=== PATIENT | male | born 1945 | race Caucasian/White ===

== ENCOUNTER 2016-11-14 05:55 | Day surgery (SDC) | payer MEDICARE, BC ==
[~2016-11-14] VITALS: Ht 170.2 cm; Wt 59.1 kg
[~2016-11-14 05:55] MED LIST: AMIT10 PO; AZIT250T43 PO; FINA5TAB77 PO; FLEX10TA PO; HYDR-2951 PO; LANS30 PO; LEVO125T3 PO; LUMI0.01 EACH EYE; PROC10TA4 PO; TAMS0.4C67 PO; TUMS500C PO; ZOFR4TAB3 SL
[2016-11-14 06:34] VITALS: BP 104/73; PULSE 74; RESP 18; TEMP 97.6; O2SAT 99
[2016-11-14] MEDS ORDERED: AMIT10TA6 PO (06:37)
[2016-11-14] MEDS ORDERED: LUMI0.01 EACH EYE (06:37)
[2016-11-14] MEDS ORDERED: LEVO88TA2 PO (06:37)
[2016-11-14] MEDS ORDERED: PROS5TAB PO (06:37)
[2016-11-14] MEDS ORDERED: TAMS5CAP PO (06:37)
[2016-11-14] MEDS ORDERED: ceFAZolin 2 GM PREMIX 50 ML - implanted port removal IV SCH (06:45)
[2016-11-14] MEDS ORDERED: SODIUM CHLORIDE 0.9% 1000 ML IV SCH (06:45)
[2016-11-14 07:11] LABS: AUTOMATED NEUTROPHIL # 3.4 TH/MM3 (1.8-7.7); BASOPHIL % 0.8 % (0.0-2.0); EOSINOPHIL # 0.3 TH/MM3 (0-0.4); EOSINOPHIL % 6.4 % (0.0-4.0); HEMATOCRIT 42.6 % (39.0-51.0); HEMO FLAGS DIFF FINAL; LYMPHOCYTE # 0.7 TH/MM3 (1.0-4.8); MEAN CELL VOLUME 91.9 FL (80.0-100.0); MEAN CORPUSCULAR HEMOGLOBIN 31.4 PG (27.0-34.0); MEAN CORPUSCULAR HGB CONC 34.2 % (32.0-36.0); NEUT % 67.8 % (16.0-70.0); PLATELET COUNT 224 TH/MM3 (150-450); RED BLOOD COUNT 4.64 MIL/MM3 (4.50-5.90); RED CELL DISTRIBUTION WIDTH 14.5 % (11.6-17.2)
[2016-11-14 07:30] LABS: PROTHROMBIN TIME - PATIENT 10.5 SEC (9.8-11.6)
[2016-11-14] MEDS ORDERED: fentaNYL CITRATE 250 MCG/5 ML AMP ONE (07:45)
[2016-11-14] MEDS ORDERED: MIDAZOLAM HCL 2 MG/2 ML VIAL ONE (07:45)
[2016-11-14] MEDS ORDERED: LIDOCAINE 1%/EPINEPHrine 1:100,000 SOLN 20 ML VIAL ONE (07:58)
[2016-11-14 08:50] VITALS: BP 120/62; PULSE 101; RESP 18; TEMP 97.8; O2SAT 97
[2016-11-14 09:05] VITALS: BP 113/64; PULSE 56; RESP 20; O2SAT 100
[2016-11-14 09:35] VITALS: BP 118/68; PULSE 98; RESP 18; O2SAT 96
--- NOTE | 2016-11-14 09:55 | PD.RAD ---
Post Procedure Progress Note Pre Procedure Diagnosis: (1) Tonsillar cancer Post Procedure Diagnosis: (1) Tonsillar cancer Procedure Date: Nov 14, 2016 Supervising Radiologist: Felix Vigil Proceduralist/Assist: Mahnaz Sinha RT(R), RT Bryn(R)() Anesthesia: Local, Conscious Sedation Plan of Activity Patient to Unit: ROPU Patient Condition: Good See PACS Report for procedural detail/treatment Central Venous Access Device Procedure 1 Right Infusaport Removal Felix Vigil MD Nov 14, 2016 09:55
[2016-11-14 10:05] VITALS: BP 107/64; PULSE 95; RESP 20; O2SAT 97
[2016-11-14 10:35] VITALS: BP 110/62; PULSE 88; RESP 20; O2SAT 97
== END 2016-11-14 10:50 | disposition home or self-care (01) ==
LOC: HROP 05:55 → HRIP 05:55 → HROP 10:50
PROVIDERS: ATTEND Internal Medicine
DX: C09.9 Malignant neoplasm of tonsil, unspecified (principal); I80.9 Phlebitis and thrombophlebitis of unspecified site; I95.9 Hypotension, unspecified; K21.9 Gastro-esophageal reflux disease without esophagitis; H35.30 Unspecified macular degeneration; N40.0 Benign prostatic hyperplasia without lower urinary tract symptoms; D36.10 Benign neoplasm of peripheral nerves and autonomic nervous system, unspecified; G62.9 Polyneuropathy, unspecified; Z01.810 Encounter for preprocedural cardiovascular examination
CPT/HCPCS: 36590; 85025; 85610; 85730; 99152; 99153; J0690; J2250; J3010; J7030